=== PATIENT | female | born 1955 | race Caucasian/White ===

== ENCOUNTER 2018-08-09 13:24 | Emergency (ER) | payer MEDICAID ==
[~2018-08-09] VITALS: Ht 167.6 cm; Wt 76.2 kg
[~2018-08-09 13:24] MED LIST: AMIT100T2 PO; ASPI-1155 PO; PHEN100C4 PO; ZOLP10TA2 PO
[2018-08-09 13:25] VITALS: BP_SYST 116
[2018-08-09 14:29] LABS: BASOPHILS # (AUTO) 0.1 K/uL (0.0-0.2); BASOPHILS % (AUTO) 0.5 % (0.0-2.0); EOSINOPHILS # (AUTO) 0.1 K/uL (0.0-0.4); EOSINOPHILS % (AUTO) 0.6 % (0.0-4.0); HEMATOCRIT 43.9 % (36-48); HEMOGLOBIN 14.2 g/dL (12.0-16.0); LYMPHOCYTES # (AUTO) 2.7 K/uL (1.0-5.5); LYMPHOCYTES % (AUTO) 25.2 % (20.5-51.5); MEAN CORPUSCULAR HEMOGLOBIN 29 pg (27-31); MEAN CORPUSCULAR HGB CONC 32 % (32-36); MEAN CORPUSCULAR VOLUME 88 fL (79.0-98.0); MONOCYTES # (AUTO) 0.6 K/uL (0.0-1.0); MONOCYTES % (AUTO) 5.8 % (1.7-9.3); NEUTROPHILS # (AUTO) 7.1 K/uL (1.8-7.7); NEUTROPHILS % (AUTO) 67.9 % (40.0-70.0); PLATELET COUNT (AUTO) 340 K/uL (130-430); RED BLOOD CELL COUNT(AUTO) 4.98 MIL/uL (4.2-6.2); RED CELL DISTRIBUTION WIDTH 12.9 % (9.0-15.0); WHITE BLOOD COUNT (AUTO) 10.6 K/uL (4.8-10.8)
[2018-08-09 14:45] LABS: CALCIUM 9.7 mg/dL (8.4-11.0); CREATININE 1.32 mg/dL (0.55-1.30); POTASSIUM 3.5 mmol/L (3.5-5.1)
[2018-08-09 14:49] LABS: ALBUMIN 3.8 g/dL (3.4-4.8); TOTAL BILIRUBIN 0.3 mg/dL (0.0-1.0)
[2018-08-09 14:50] LABS: PROTHROMBIN TIME 10.2 SECS (9.5-12.5)
[2018-08-09 15:29] VITALS: BP_SYST 114
== END 2018-08-09 15:28 | disposition home or self-care (01) ==
LOC: SED 13:24
DX: F41.9 Anxiety disorder, unspecified (principal); R03.0 Elevated blood-pressure reading, without diagnosis of hypertension; Z86.79 Personal history of other diseases of the circulatory system; Z79.82 Long term (current) use of aspirin; Z79.899 Other long term (current) drug therapy
CPT/HCPCS: 36415; 71045; 80053; 82550-TC; 83880; 84484; 85025; 85610-TC; 85730-TC; 93005; 99285

== ENCOUNTER 2020-04-15 15:11 | Emergency (ER) | payer MEDICAID ==
[~2020-04-15] VITALS: Ht 167.6 cm; Wt 83.9 kg
[2020-04-15 15:18] VITALS: BP_SYST 134
--- NOTE | 2020-04-15 15:18 | NUR ---
Placed in room 5 . Placed on pvc monitor, blood pressure machine and pulse oximeter. To gown for exam. Side rails up. Report given to SHAWANDA Gilbert.
--- NOTE | 2020-04-15 15:20 | NUR ---
Called Poison Control at [phone] and spoke with Harman. Per recommendations: get basic labs of CBC, CMP, Tylenol, and aspirin level. Monitor for respiratory distress. Get an EKG to monitor for narrow QRS (ideally <100 milliseconds). Taking 9 tablets of ambien is not a critical overdose and it is advised to monitor for 4-[address] Sauceda notified. Will continue to monitor patient.
--- NOTE | 2020-04-15 15:35 | NUR ---
PATIENT PRESENTS TO THE ER WITH HX OF AMBIEN EXCESS TODAY; ROOM MATE NOTED PATIENT WAS SOMULENT AND DIFFICULT TO AROUSE AT 1300; 911 WAS CALLED AND PATIENT BROUGHT TO ER BCLS; SHE INDICATED THAT SHE TOOK SEVERAL AMBIEN AT A TIME OVER THE COURSE OF SEVERAL HOURS; (ESTIMATED 9 TABS 10MG) POISON CONTROL CALLED AND ADVISED; PATIENT IS CURRENTLY AWAKE AND ALERT AND STATES SHE JUST WANTS TO SLEEP
--- NOTE | 2020-04-15 16:25 | NUR ---
REASSESSMENT; PATIENT REMAINS AWAKE, RESTING INTERMITTENTLY BUT IS EASILY AROUSABLE; OTHERWISE UNCHANGED; DISPOSITION PENDING
[2020-04-15 16:41] LABS: BASOPHILS # (AUTO) 0.1 K/uL (0.0-0.2); BASOPHILS % (AUTO) 1.3 % (0.0-2.0); EOSINOPHILS % (AUTO) 0.6 % (0.0-4.0); HEMATOCRIT 39.7 % (36-48); HEMOGLOBIN 13.3 g/dL (12.0-16.0); LYMPHOCYTES # (AUTO) 2.4 K/uL (1.0-5.5); MEAN CORPUSCULAR HEMOGLOBIN 30 pg (27-31); MEAN CORPUSCULAR HGB CONC 33 % (32-36); MEAN CORPUSCULAR VOLUME 89 fL (79.0-98.0); MONOCYTES # (AUTO) 0.5 K/uL (0.0-1.0); NEUTROPHILS % (AUTO) 57.1 % (40.0-70.0); PLATELET COUNT (AUTO) 252 K/uL (130-430); RED BLOOD CELL COUNT(AUTO) 4.48 MIL/uL (4.2-6.2); RED CELL DISTRIBUTION WIDTH 13.3 % (9.0-15.0)
[2020-04-15 16:53] LABS: PROTHROMBIN TIME 10.2 SECS (9.5-12.5)
[2020-04-15 16:55] LABS: CALCIUM 9.2 mg/dL (8.4-11.0); CREATININE 1.01 mg/dL (0.55-1.30); POTASSIUM 3.8 mmol/L (3.5-5.1)
[2020-04-15 17:02] LABS: ALBUMIN 3.5 g/dL (3.4-4.8); TOTAL BILIRUBIN 0.2 mg/dL (0.0-1.0)
--- NOTE | 2020-04-15 17:53 | NUR ---
PATIENT UP AND OUT OF BED, REMOVING IV AND MASK STATING 'I'M READY TO GO HOME'; RETURNED TO BED WITH RESTART IV #22 RIGHT HAND, MASK RESET
--- NOTE | 2020-04-15 19:16 | NUR ---
Pt AxOx4, stable. Waiting for UA, for discharge.
[2020-04-15 19:27] LABS: BILIRUBIN,URINE NEGATIVE (NEGATIVE); BLOOD, URINE NEGATIVE (NEGATIVE); CLARITY/URINE CLEAR (CLEAR); GLUCOSE,URINE NEGATIVE (NEGATIVE); KETONES,URINE NEGATIVE (NEGATIVE); NITRITE, URINE NEGATIVE (NEGATIVE); PROTEIN URINE NEGATIVE (NEGATIVE); UROBILINOGEN,URINE 0.2 (0.2-1.0)
[2020-04-15 19:36] LABS: COLOR,URINE STRAW (YELLOW); LEUKOCYTE ESTERASE ,URINE TRACE (NEGATIVE)
[2020-04-15 19:39] LABS: BACTERIA,URINE FEW /HPF (None Seen); MUCUS,URINE None Seen /LPF (None Seen); RBC,URINE NONE SEEN /HPF (0-3)
--- NOTE | 2020-04-15 19:59 | NUR ---
Patient given written and verbal discharge instructions and verbalizes understanding. ER MD discussed with patient the results and treatment provided. Patient in stable condition. ID arm band removed. IV catheter removed intact and dressing applied, no active bleeding. Opportunity for questions provided and answered. Medication side effect fact sheet provided.
[2020-04-15 20:02] VITALS: BP_SYST 138
== END 2020-04-15 19:59 | disposition home or self-care (01) ==
LOC: SED 15:11
DX: T42.6X1A Poisoning by other antiepileptic and sedative-hypnotic drugs, accidental (unintentional), initial encounter (principal); F39 Unspecified mood [affective] disorder; F41.9 Anxiety disorder, unspecified; E11.9 Type 2 diabetes mellitus without complications; Z86.73 Personal history of transient ischemic attack (TIA), and cerebral infarction without residual deficits; Z79.899 Other long term (current) drug therapy; Z79.82 Long term (current) use of aspirin; Y92.89 Other specified places as the place of occurrence of the external cause
CPT/HCPCS: 36415; 71045; 80053; 81000-TC; 82550-TC; 83605; 83690-TC; 84484; 85025; 85610-TC; 85730-TC; 87040-TC; 93005; 99285

== ENCOUNTER 2022-03-24 20:49 | Inpatient (IN) | payer OTHER, MEDICAID ==
[~2022-03-24] VITALS: Ht 167.6 cm; Wt 80.7 kg
[2022-03-24 20:53] VITALS: BP_SYST 101
[2022-03-24] MEDS ORDERED: ASPIRIN 81 MG TAB.CHEW PO ONE (21:30)
[2022-03-24 22:24] LABS: EOSINOPHILS # (AUTO) 0.1 K/uL (0.0-0.4); HEMOGLOBIN 14.8 g/dL (12.0-16.0); MEAN CORPUSCULAR HGB CONC 34 % (32-36)
[2022-03-24 22:31] LABS: BASOPHILS # (AUTO) 0.1 K/uL (0.0-0.2); EOSINOPHILS % (AUTO) 0.6 % (0.0-4.0); HEMATOCRIT 43.7 % (36-48); LYMPHOCYTES # (AUTO) 2.7 K/uL (1.0-5.5); LYMPHOCYTES % (AUTO) 27.9 % (20.5-51.5); MEAN CORPUSCULAR HEMOGLOBIN 29 pg (27-31); MEAN CORPUSCULAR VOLUME 86 fL (79.0-98.0); MONOCYTES # (AUTO) 0.8 K/uL (0.0-1.0); MONOCYTES % (AUTO) 7.7 % (1.7-9.3); NEUTROPHILS # (AUTO) 6.2 K/uL (1.8-7.7); NEUTROPHILS % (AUTO) 62.8 % (40.0-70.0); PLATELET COUNT (AUTO) 298 K/uL (130-430); WHITE BLOOD COUNT (AUTO) 9.8 K/uL (4.8-10.8)
[2022-03-24 22:45] LABS: ANION GAP 10 (5-15); CALCIUM 9.7 mg/dL (8.4-11.0); CHLORIDE 102 mmol/L (98-107); CREATININE 1.36 mg/dL (0.55-1.30); GLUCOSE 119 mg/dL (70-99); POTASSIUM 3.5 mmol/L (3.5-5.1); SODIUM SERUM 133 mmol/L (136-145); UREA NITROGEN, BLOOD 15 mg/dL (8-21)
[2022-03-24 22:48] LABS: GFR AFRICAN AMERICAN 50 mL/min (>90)
[2022-03-24 22:52] LABS: ALANINE AMINOTRANSFERASE 40 U/L (12-78); ALBUMIN 3.7 g/dL (3.4-4.8); ASPARTATE AMINOTRANSFERASE 24 U/L (10-37); TOTAL BILIRUBIN 0.2 mg/dL (0.0-1.0)
[2022-03-24] MEDS ORDERED: ASA81 PO (23:01)
[2022-03-24] MEDS ORDERED: AMIT50TA3 PO (23:01)
[2022-03-24] MEDS ORDERED: OMEP20CA15 PO (23:01)
[2022-03-25] MEDS ORDERED: ENOXAPARIN SODIUM 60 MG/0.6 ML SYRINGE SUBCUT ONE (00:15)
[2022-03-25 00:32] LABS: BILIRUBIN,URINE 1+ (NEGATIVE); CLARITY/URINE SL CLOUDY (CLEAR); COLOR,URINE YELLOW (YELLOW); GLUCOSE,URINE NEGATIVE (NEGATIVE); KETONES,URINE TRACE (NEGATIVE); LEUKOCYTE ESTERASE ,URINE 2+ (NEGATIVE); NITRITE, URINE NEGATIVE (NEGATIVE); PH,URINE 5.5 (5.0-8.0); PROTEIN URINE TRACE (NEGATIVE); UROBILINOGEN,URINE 0.2 (0.2-1.0)
[2022-03-25 00:35] LABS: BLOOD, URINE TRACE (NEGATIVE)
[2022-03-25 01:00] LABS: RBC,URINE 0-3 /HPF (0-3)
[2022-03-25 01:01] LABS: BACTERIA,URINE FEW /HPF (None Seen)
[2022-03-25 01:45] VITALS: BP_SYST 143
[2022-03-25] MEDS ORDERED: MORPHINE 2 MG/ML INJ. SYRINGE IVP PRN ×2 (07:30)
[2022-03-25] MEDS ORDERED: IPRATROPIUM/ALBUTEROL SULFATE 3 ML AMPUL.NEB (DUONEB) INH PRN (07:30)
[2022-03-25] MEDS ORDERED: NALOXONE HCL 0.4 MG/ML AMP (NARCAN) IVP PRN ×2 (07:30)
[2022-03-25] MEDS ORDERED: ZOLPIDEM TARTRATE 5 MG TABLET PO PRN (07:30)
[2022-03-25] MEDS ORDERED: DOCUSATE SODIUM 100 MG CAPSULE PO PRN (07:30)
[2022-03-25] MEDS ORDERED: MAGNESIUM SULFATE 50 ML IV PRN (07:30)
[2022-03-25] MEDS ORDERED: LORazepam 2 MG/ML VIAL IVP PRN (07:30)
[2022-03-25] MEDS ORDERED: ACETAMINOPHEN 325 MG TABLET PO PRN ×2 (07:30→08:00)
[2022-03-25] MEDS ORDERED: POTASSIUM CHLORIDE 20 MEQ TAB.PRT.SR PO PRN (07:30)
[2022-03-25] MEDS ORDERED: ONDANSETRON HCL 4 MG/2 ML VIAL IVP PRN (07:30)
[2022-03-25] MEDS ORDERED: MUPIROCIN 2% TOPICAL OINTMENT 22 GM NS PRN (07:30)
[2022-03-25 08:27] VITALS: BP_SYST 101
[2022-03-25] MEDS ORDERED: HEPARIN SODIUM,PORCINE 5,000 UNITS/ML VIAL SUBCUT SCH (09:00)
[2022-03-25 10:08] LABS: FREE T4 (FREE THYROXINE) 0.8 ng/dl (0.8-1.5); THYROID STIMULATING HORMONE 2.19 uIu/mL (0.36-3.74)
[2022-03-25] MEDS: cefTRIAXone 1 GM in D5W 50 ML IV SCH (10:09)
[2022-03-25] MEDS: NACL 0.9% 1,000 ML IV SCH (10:09)
[2022-03-25] MEDS: AMITRIPTYLINE HCL 25 MG TABLET (ELAVIL) PO SCH (10:10)
[2022-03-25] MEDS: ASPIRIN 81 MG TAB.CHEW PO SCH (10:10)
[2022-03-25 16:15] VITALS: BP_SYST 124
[2022-03-25 20:00] VITALS: BP_SYST 106
[2022-03-26] VITALS: BP_SYST 123
[2022-03-26] MEDS: AMITRIPTYLINE HCL 25 MG TABLET (ELAVIL) PO SCH ×3 (00:07→20:58)
[2022-03-26] MEDS: ENOXAPARIN SODIUM 40 MG/0.4 ML SYRINGE SUBCUT SCH ×2 (00:12→20:59)
[2022-03-26] MEDS: NACL 0.9% 1,000 ML IV SCH ×2 (00:14→12:06)
[2022-03-26 08:00] LABS: CALCIUM 8.3 mg/dL (8.4-11.0); CREATININE 0.95 mg/dL (0.55-1.30); POTASSIUM 4.3 mmol/L (3.5-5.1)
[2022-03-26 08:18] LABS: BASOPHILS # (AUTO) 0.1 K/uL (0.0-0.2); EOSINOPHILS # (AUTO) 0.2 K/uL (0.0-0.4); EOSINOPHILS % (AUTO) 2.5 % (0.0-4.0); HEMATOCRIT 40.9 % (36-48); HEMOGLOBIN 13.6 g/dL (12.0-16.0); LYMPHOCYTES # (AUTO) 3.2 K/uL (1.0-5.5); LYMPHOCYTES % (AUTO) 47.4 % (20.5-51.5); MEAN CORPUSCULAR HEMOGLOBIN 29 pg (27-31); MEAN CORPUSCULAR HGB CONC 33 % (32-36); MEAN CORPUSCULAR VOLUME 86 fL (79.0-98.0); MONOCYTES # (AUTO) 0.5 K/uL (0.0-1.0); MONOCYTES % (AUTO) 8.1 % (1.7-9.3); NEUTROPHILS # (AUTO) 2.8 K/uL (1.8-7.7); PLATELET COUNT (AUTO) 240 K/uL (130-430); RED BLOOD CELL COUNT(AUTO) 4.74 MIL/uL (4.2-6.2); RED CELL DISTRIBUTION WIDTH 14.1 % (9.0-15.0)
[2022-03-26 08:38] LABS: WHITE BLOOD COUNT (AUTO) 6.8 K/uL (4.8-10.8)
[2022-03-26] MEDS: ASPIRIN 81 MG TAB.CHEW PO SCH (09:03)
[2022-03-26] MEDS: cefTRIAXone 1 GM in D5W 50 ML IV SCH (09:03)
[2022-03-26 12:02] VITALS: BP_SYST 119
[2022-03-26 16:24] VITALS: BP_SYST 119
[2022-03-26] MEDS ORDERED: BUDESONIDE 0.5 MG/2 ML AMPUL.NEB INH SCH (19:00)
[2022-03-26] MEDS ORDERED: BUDE6.9H INH (20:01)
[2022-03-26 20:03] VITALS: BP_SYST 114
[2022-03-27 00:32] VITALS: BP_SYST 138
[2022-03-27] MEDS: NACL 0.9% 1,000 ML IV SCH ×2 (01:59→09:27)
[2022-03-27 07:56] LABS: CREATININE 0.95 mg/dL (0.55-1.30)
[2022-03-27 08:00] VITALS: BP_SYST 163
[2022-03-27 08:06] LABS: BASOPHILS # (AUTO) 0.1 K/uL (0.0-0.2); EOSINOPHILS # (AUTO) 0.2 K/uL (0.0-0.4); EOSINOPHILS % (AUTO) 2.5 % (0.0-4.0); HEMATOCRIT 39.7 % (36-48); LYMPHOCYTES # (AUTO) 2.8 K/uL (1.0-5.5); LYMPHOCYTES % (AUTO) 46.2 % (20.5-51.5); MEAN CORPUSCULAR HEMOGLOBIN 29 pg (27-31); MEAN CORPUSCULAR HGB CONC 33 % (32-36); MEAN CORPUSCULAR VOLUME 87 fL (79.0-98.0); MONOCYTES # (AUTO) 0.5 K/uL (0.0-1.0); MONOCYTES % (AUTO) 7.6 % (1.7-9.3); NEUTROPHILS # (AUTO) 2.6 K/uL (1.8-7.7); NEUTROPHILS % (AUTO) 42.7 % (40.0-70.0); PLATELET COUNT (AUTO) 228 K/uL (130-430); RED BLOOD CELL COUNT(AUTO) 4.54 MIL/uL (4.2-6.2); RED CELL DISTRIBUTION WIDTH 13.9 % (9.0-15.0); WHITE BLOOD COUNT (AUTO) 6.2 K/uL (4.8-10.8)
[2022-03-27] MEDS: AMITRIPTYLINE HCL 25 MG TABLET (ELAVIL) PO SCH (09:27)
[2022-03-27] MEDS: cefTRIAXone 1 GM in D5W 50 ML IV SCH (09:28)
[2022-03-27] MEDS: ASPIRIN 81 MG TAB.CHEW PO SCH (09:28)
[2022-03-27 12:00] VITALS: BP_SYST 132
[2022-03-27 12:35] VITALS: BP_SYST 132
== END 2022-03-27 14:15 | disposition home health service (06) | DRG 206 ==
LOC: SED 20:49 → STU 03-25 00:32
PROVIDERS: ADMIT General Practice; ATTEND General Practice
DX: M94.0 Chondrocostal junction syndrome [Tietze] (principal); J44.1 Chronic obstructive pulmonary disease with (acute) exacerbation; N39.0 Urinary tract infection, site not specified; R65.10 Systemic inflammatory response syndrome (SIRS) of non-infectious origin without acute organ dysfunction; G47.00 Insomnia, unspecified; G40.909 Epilepsy, unspecified, not intractable, without status epilepticus; K21.9 Gastro-esophageal reflux disease without esophagitis; R53.81 Other malaise; Z20.822 Contact with and (suspected) exposure to COVID-19; F41.9 Anxiety disorder, unspecified; E78.5 Hyperlipidemia, unspecified; Z90.49 Acquired absence of other specified parts of digestive tract; Z79.82 Long term (current) use of aspirin; Z79.899 Other long term (current) drug therapy
CPT/HCPCS: 36415; 36600; 71045; 80048; 80053; 81000; 82803-TC; 83036; 83735; 83880; 84439; 84443; 84484; 85025; 85379; 85651-TC; 86140; 87086; 93005; 93306; 94640; 94760; 96372; 99285; G0378; J0696; J1650; J7060; J7626